=== PATIENT | female | born 1975 | race Hispanic/Latino ===

== ENCOUNTER 2017-04-29 13:05 | Emergency (ER) | payer BC ==
[2017-04-29] MEDS ORDERED: Ondansetron HCl/PF 4 MG/2 ML Vial ONE ×2 (13:39→18:00)
[2017-04-29 13:53] LABS: #Basophils 0.1 thou/uL (0.0-0.2); #Eosinphils 0.1 thou/uL (0.0-0.7); #Lymphocytes 2.1 thou/uL (1.20-3.40); #Monocytes 0.5 thou/uL (0.11-0.59); #Neutrophils 6.9 thou/uL (1.40-6.50); %Basophils 0.7 % (0.0-1.0); %Lymphocytes 21.3 % (21.0-51.0); %Monocytes 5.6 % (0.0-10.0); Hematocrit 44.8 % (36.0-47.0); Mean Platelet Volume 8.5 fL (7.4-10.4); Red Blood Cell (RBC) Count 4.84 mill/uL (4.20-5.40); White Blood Cell (WBC) Count 9.6 thou/uL (4.8-10.8)
[2017-04-29 14:24] LABS: ALT (SGPT) 14 U/L (8-55); AST (SGOT) 9 U/L (5-34); Alkaline Phosphatase 81 U/L (40-150); Anion Gap 11 mmol/L (10-20); BUN (Urea Nitrogen) 16 mg/dL (7.0-18.7); Bilirubin, Total 0.5 mg/dL (0.2-1.2); Calc. Creatinine Clearance 0 mL/min (70-130); Calcium 9.3 mg/dL (7.8-10.44); Carbon Dioxide 24 mmol/L (22-29); Chloride 103 mmol/L (98-107); Estimated GFR-MDRD 90; Globulin 3.3 g/dL (2.4-3.5); Lipase 6 U/L (8-78); Protein, Total 7.3 g/dL (6.0-8.3)
[2017-04-29] MEDS ORDERED: HYDROcodone/Acetaminophen 5/325 mg Tablet ONE (15:05)
[2017-04-29] MEDS ORDERED: Dicyclomine HCl 20 mg/2 ml Ampule ONE (15:15)
[2017-04-29] MEDS ORDERED: Famotidine/PF 20 mg/2ml Vial ONE (15:15)
--- NOTE | 2017-04-29 15:27 | RAD ---
ONE VIEW CHEST ABDOMEN 2 VIEWS: HISTORY: Abdominal pain. Body aches and epigastric pain. FINDINGS: ONE VIEW CHEST: Normal cardiac silhouette. Pulmonary vessels and hilum are normal. No masses or consolidation. No pneumothorax or osseous abnormalities. ABDOMEN 2 VIEWS: Nonspecific bowel gas pattern. There is scattered fecal material in nondistended, nondilated colon. No differential air fluid levels. No suspicious densities in the abdomen. Phleboliths in the rig ht hemipelvis are noted. Gallbladder clips are identified in the right upper quadrant. IMPRESSION: 1. No acute cardiopulmonary process. 2. Nonspecific bowel gas pattern. POS: [facility]
[2017-04-29 16:45] LABS: Bilirubin Negative (Negative); Blood, Urine Moderate (Negative); Glucose, Urine (Dipstick) >=1000 mg/dL (Negative); Ketone, Urine 15 mg/dL (Negative); Nitrite Negative (Negative); Protein, Urine (Dipstick) 30 mg/dL (Neg-Trace); Urobilinogen 0.2 mg/dL (0.2-1.0)
[2017-04-29 17:05] LABS: Bacteria/HPF 4+ HPF (None Seen); Hyaline Casts/LPF NONE SEEN LPF (0-3 Hyaline); RBC/HPF 0-3 HPF (0-3); WBC/HPF 21-50 HPF (0-3)
[2017-04-29] MEDS ORDERED: Sodium Chloride 0.9% 100 ML ONE (17:24)
[2017-04-29] MEDS ORDERED: cefTRIAXone\\ROCEPHIN 2 GM VIAL ONE (17:24)
--- NOTE | 2017-05-01 11:58 | EKG ---
Test Reason : Blood Pressure : / mmHG Vent. Rate : 099 BPM Atrial Rate : 099 BPM P-R Int : 156 ms QRS Dur : 082 ms QT Int : 344 ms P-R-T Axes : 024 -12 007 degrees QTc Int : 441 ms Normal sinus rhythm Possible Anterior infarct , age undetermined Abnormal ECG Confirmed by ADRIAN GERARD MD ([id number]), rewrite editor JACKLYN BLAS ([id number]) on 05/01/2017 11:57:32 AM Referred By: Confirmed By:ADRIAN GERARD MD
== END 2017-04-29 19:15 | disposition home or self-care (01) ==
LOC: ERS 13:05
DX: N39.0 Urinary tract infection, site not specified (principal); E11.9 Type 2 diabetes mellitus without complications
CPT/HCPCS: 36415; 36416; 51701; 74022; 80053; 81003; 81015; 83690; 85025; 87077; 87086; 87186; 93005; 94760; 96361; 96365; 96372; 96375; 96376; J0696; J2270; J2405; J7050; S0028

== ENCOUNTER 2018-01-16 11:02 | Emergency (ER) | payer BC, SELFPAY ==
--- NOTE | 2018-01-16 11:35 | RAD ---
FOUR VIEWS OF THE RIGHT KNEE: Comparison None. HISTORY: Right knee pain after dancing last night. FINDINGS: Four views of the right knee show no evidence of acute fracture or dislocation. No knee effusion is seen. No degenerative changes are seen. IMPRESSION: Unremarkable exam. POS: [facility]
[2018-01-16] MEDS ORDERED: Ketorolac Tromethamine 60 MG/2 ML VIAL ONE (12:11)
== END 2018-01-16 12:27 | disposition home or self-care (01) ==
LOC: ERS 11:02
DX: M25.561 Pain in right knee (principal); E11.9 Type 2 diabetes mellitus without complications
CPT/HCPCS: 96372; J1885

== ENCOUNTER 2018-03-23 04:01 | Emergency (ER) | payer SELFPAY ==
[2018-03-23] MEDS ORDERED: Morphine 4 MG/ML VIAL ONE (04:26)
[2018-03-23] MEDS ORDERED: Ondansetron HCl/PF 4 MG/2 ML Vial ONE (04:26)
[2018-03-23 04:34] LABS: Bilirubin Negative (Negative); Blood, Urine Moderate (Negative); Clarity TURBID (Clear); Glucose, Urine (Dipstick) >=1000 mg/dL (Negative); Leukocyte Small (Negative); Nitrite Positive (Negative); Protein, Urine (Dipstick) 30 mg/dL (Neg-Trace); Specific Gravity, Urine 1.031 (1.002-1.036); Urobilinogen 0.2 mg/dL (0.2-1.0); pH, Urine 6.5 (5.0-9.0)
[2018-03-23 04:37] LABS: Bacteria/HPF 4+ HPF (None Seen); Hyaline Casts/LPF 4-6 HYALINE CAST LPF (0-3 Hyaline); Pathc Cast-AUWi Flag 1.36 (0-2.49); WBC/HPF 21-50 HPF (0-3)
[2018-03-23 04:39] LABS: Yeast-AUWi Flag 694.8 (0-25.0)
[2018-03-23 04:54] LABS: #Eosinphils 0.1 thou/uL (0.0-0.7); #Lymphocytes 0.6 thou/uL (1.20-3.40); #Monocytes 0.2 thou/uL (0.11-0.59); #Neutrophils 6.3 thou/uL (1.40-6.50); %Basophils 0.3 % (0.0-1.0); %Eosinophils 0.9 % (0.0-10.0); %Lymphocytes 8.8 % (21.0-51.0); %Monocytes 3.3 % (0.0-10.0); %Neutrophils 86.8 % (42.0-75.0); Hemoglobin 14.1 g/dL (12.0-16.0); Mean Corpuscular HGB CONC 35.4 g/dL (32.0-36.0); Mean Corpuscular Hemoglobin 31.9 pg (27.0-31.0); Mean Corpuscular Volume 90.1 fL (78.0-98.0); Mean Platelet Volume 8.7 fL (7.4-10.4); Platelet Count 179 thou/uL (130-400); RBC Distribution Width 11.7 % (11.5-14.5); Red Blood Cell (RBC) Count 4.42 mill/uL (4.20-5.40); White Blood Cell (WBC) Count 7.2 thou/uL (4.8-10.8)
[2018-03-23 04:57] LABS: RBC/HPF 0-3 HPF (0-3); Yeast-All Forms Rare HPF (None Seen)
[2018-03-23 05:01] LABS: BHCG - Serum Negative (NEGATIVE); Pregs Control Background? CLEAR/WHITE (CLR/WHITE); Pregs Control Bar Appear? YES (CONTROL BAR)
[2018-03-23] MEDS ORDERED: cefTRIAXone\\ROCEPHIN 2 GM VIAL ONE (05:01)
[2018-03-23] MEDS ORDERED: Lidocaine Viscous Sol 2% 15 ml UD Cup ONE (05:01)
[2018-03-23] MEDS ORDERED: Mag-Al 1200 mg/1200 mg/30 ML UDCUP ONE (05:01)
[2018-03-23 05:17] LABS: ALT (SGPT) 21 U/L (8-55); AST (SGOT) 13 U/L (5-34); Alkaline Phosphatase 72 U/L (40-150); Anion Gap 14 mmol/L (10-20); BUN (Urea Nitrogen) 19 mg/dL (7.0-18.7); Bilirubin, Total 0.7 mg/dL (0.2-1.2); Calc. Creatinine Clearance 0 mL/min (70-130); Carbon Dioxide 20 mmol/L (22-29); Chloride 103 mmol/L (98-107); Estimated GFR-MDRD 87; Globulin 3.3 g/dL (2.4-3.5); Glucose 313 mg/dL (70-105); Lipase 8 U/L (8-78); Potassium 4.2 mmol/L (3.5-5.1); Protein, Total 7.3 g/dL (6.0-8.3); Sodium 133 mmol/L (136-145)
--- NOTE | 2018-03-23 08:03 | CT ---
PRELIMINARY REPORT/[facility]/EMERGENTY AFTER-HOURS PROCEDURE CT Abdomen and Pelvis With Intravenous Contrast CLINICAL HISTORY: 42 years old, female; Pain; Abdominal pain; Epigastric; Prior surgery; Patient HX: Pt C/O upper abdominal pain; Surgical history of cholecystectomy, surgical history of hysterectomy, c -section TECHNIQUE: Axial computed tomography images of the abdomen and pelvis with intravenous contrast. Coronal reformatted images were created and reviewed. COMPARISON: No relevant prior studies available. FINDINGS: Lung bases: No acute findings. Liver: Mild hepatic steatosis. Borderline hepatomegaly. Gallbladder and bile ducts: Cholecystectomy. Pancreas: Mild fatty infiltration of the pancreas. Spleen: Unremarkable. No splenomegaly. Adrenals: Unremarkable. No mass. No hyperplasia. Kidneys and ureters: Left renal collecting system duplication. No hydronephrosis. Stomach and bowel: Unremarkable. No obstruction. No diverticulitis. Appendix: No findings to suggest appendicitis. Bladder: Bladder under distention accentuates mural thickness. Mild wall thickening cannot be exclude d. Intraluminal air likely secondary to recent instrumentation. Reproductive: Hysterectomy. Intraperitoneal space: No free air. No significant fluid. Bones/joints: No acute findings. Soft tissues: No acute findings. Vasculature: No acute findings. Lymph nodes: Unremarkable. IMPRESSION: Possible mild bladder wall thickening. No other acute abnormalities. Thank you for allowing us to participate in the care of your patient. Dictated and Authenticated by: Lb Saleem MD EMERGENT AFTER HOURS CT ABDOMEN AND PELVIS: Date: 03-23-18 History: Upper abdominal pain. History of cholecystectomy and hysterectomy. Comparison: 03-27-17 IMPRESSION: 1. Gas in the urinary bladder which may be related to recent catheterization. Clinical correlation is recommended. The urinary bladder is otherwise decompressed and not well evaluated. 2. Cholecystectomy and hysterectomy. 3. Mild vascular calcification. 4. No CT evidence of appendicitis. 5. No acute findings are seen in the abdomen or pelvis. 6. Findings are in agreement with the preliminary report by KARYN. POS: [facility]
--- NOTE | 2018-03-24 13:51 | EKG ---
Test Reason : EPIGASTRIC PAIN Blood Pressure : / mmHG Vent. Rate : 102 BPM Atrial Rate : 102 BPM P-R Int : 150 ms QRS Dur : 082 ms QT Int : 350 ms P-R-T Axes : 036 -18 015 degrees QTc Int : 456 ms Sinus tachycardia Possible Anterior infarct , age undetermined Abnormal ECG Confirmed by RENÉ MONZON D.O. ([id number]), food editor CAPRI MACKEY ([id number]) on 03/24/2018 1:51:26 PM Referred By: Confirmed By:RENÉ MONZON D.O.
== END 2018-03-23 06:45 | disposition home or self-care (01) ==
LOC: ERS 04:01
DX: N10 Acute pyelonephritis (principal); E11.9 Type 2 diabetes mellitus without complications; I10 Essential (primary) hypertension
CPT/HCPCS: 36415; 74177; 80053; 81003; 81015; 83690; 84703; 85025; 93005; 96365; 96372; 96375; J0696; J2270; J2405

== ENCOUNTER 2018-06-28 17:45 | Emergency (ER) | payer SELFPAY ==
[~2018-06-28 17:45] MED LIST: Iopamidol 370 76% 100 ML VIAL ONE
[2018-06-28 19:11] LABS: #Basophils 0.1 thou/uL (0.0-0.2); #Eosinphils 0.1 thou/uL (0.0-0.7); #Monocytes 0.4 thou/uL (0.11-0.59); #Neutrophils 4.6 thou/uL (1.40-6.50); %Eosinophils 1.3 % (0.0-10.0); %Lymphocytes 28.2 % (21.0-51.0); %Monocytes 5.3 % (0.0-10.0); %Neutrophils 64.2 % (42.0-75.0); Hemoglobin 13.9 g/dL (12.0-16.0); Mean Corpuscular HGB CONC 34.3 g/dL (32.0-36.0); Mean Corpuscular Hemoglobin 31.1 pg (27.0-31.0); Mean Corpuscular Volume 90.7 fL (78.0-98.0); Mean Platelet Volume 9.1 fL (7.4-10.4); Platelet Count 209 thou/uL (130-400); RBC Distribution Width 11.7 % (11.5-14.5); Red Blood Cell (RBC) Count 4.47 mill/uL (4.20-5.40); White Blood Cell (WBC) Count 7.1 thou/uL (4.8-10.8)
--- NOTE | 2018-06-28 20:07 | CT ---
CT ABDOMEN WITH CONTRAST CT PELVIS WITH CONTRAST: 06/28/18 at 6:40 p.m. HISTORY: 43-year-old female with upper abdominal pain. TECHNIQUE: IV contrast: 100 mL Isovue 370. Oral contrast: Not administered. COMPARISON: 03/23/18. FINDINGS: Liver: No major pathology. Spleen: No splenomegaly. Pancreas: No mass or surrounding fat stranding. Kidneys: No hydronephrosis. There is duplication of left renal collecting system. Bladder: No major pathology identified. Abdominal aorta: No aneurysm or rupture. Free fluid: None. Uterus is surgically absent. There are surgical clips in the gallbladder fossa. The previously demonstrated air in the urinary bladder is no longer present. There is no other interval change. IMPRESSION: 1. No evidence of acute pathology within the abdomen or pelvis. 2. Status post hysterectomy and cholecystectomy. 3. Duplication of left renal collecting system. corinne [] POS: [facility]
[2018-06-28 20:48] LABS: Albumin 3.7 g/dL (3.5-5.0)
[2018-06-28 20:49] LABS: Chloride 100 mmol/L (98-107); Potassium 3.9 mmol/L (3.5-5.1); Sodium 132 mmol/L (136-145)
[2018-06-28 20:50] LABS: Calcium 9.1 mg/dL (7.8-10.44); Glucose 304 mg/dL (70-105)
[2018-06-28 20:51] LABS: Protein, Total 6.7 g/dL (6.0-8.3)
[2018-06-28 20:52] LABS: Anion Gap 10 mmol/L (10-20); Bilirubin, Total 0.2 mg/dL (0.2-1.2); Carbon Dioxide 26 mmol/L (22-29)
[2018-06-28 20:53] LABS: Alkaline Phosphatase 88 U/L (40-150)
[2018-06-28 20:54] LABS: Calc. Creatinine Clearance 0 mL/min (70-130); Estimated GFR-MDRD Greater than 90
[2018-06-28 20:55] LABS: BUN (Urea Nitrogen) 9 mg/dL (7.0-18.7)
[2018-06-28 20:56] LABS: ALT (SGPT) 20 U/L (8-55); AST (SGOT) 14 U/L (5-34); Lipase 8 U/L (8-78)
[2018-06-28 21:02] LABS: Bilirubin Negative (Negative); Blood, Urine Trace (Negative); Clarity CLOUDY (Clear); Glucose, Urine (Dipstick) 500 mg/dL (Negative); Leukocyte Small (Negative); Nitrite Negative (Negative); Protein, Urine (Dipstick) 30 mg/dL (Neg-Trace); Urobilinogen 0.2 mg/dL (0.2-1.0)
[2018-06-28 21:03] LABS: Bacteria/HPF 4+ HPF (None Seen); Hyaline Casts/LPF 0-3 HYALINE CAST LPF (0-3 Hyaline); Pathc Cast-AUWi Flag 0.14 (0-2.49); Specific Gravity, Urine 1.055 (1.002-1.036)
[2018-06-28] MEDS ORDERED: Ketorolac Tromethamine 30 MG/ML VIAL ONE (21:43)
[2018-06-28] MEDS ORDERED: Ondansetron PF 4 MG/2 ML Vial ONE (21:43)
--- NOTE | 2018-07-02 12:06 | EKG ---
Test Reason : ABD PAIN Blood Pressure : / mmHG Vent. Rate : 086 BPM Atrial Rate : 086 BPM P-R Int : 152 ms QRS Dur : 084 ms QT Int : 378 ms P-R-T Axes : 034 -12 010 degrees QTc Int : 452 ms Sinus rhythm with Premature atrial complexes with Abberant conduction Otherwise normal ECG Confirmed by JULI MARCOS DO ([id number]), make up editor JACKLYN BLAS ([id number]) on 07/02/2018 12:05:43 PM Referred By: Confirmed By:JULI MARCOS DO
== END 2018-06-28 22:44 | disposition home or self-care (01) ==
LOC: ERS 17:45
DX: N12 Tubulo-interstitial nephritis, not specified as acute or chronic (principal); E11.9 Type 2 diabetes mellitus without complications; I10 Essential (primary) hypertension; Z79.899 Other long term (current) drug therapy; Z79.84 Long term (current) use of oral hypoglycemic drugs
CPT/HCPCS: 36415; 74177; 80053; 81003; 81015; 83690; 84484; 85025; 93005; 96374; 96375; J1885; J2405

== ENCOUNTER 2018-09-13 18:31 | Emergency (ER) | payer BC, SELFPAY ==
[2018-09-13] MEDS ORDERED: Ondansetron ODT 8 MG TAB ONE (18:48)
[2018-09-13] MEDS ORDERED: Famotidine 20 MG TAB ONE (19:04)
[2018-09-13] MEDS ORDERED: Lidocaine Viscous Sol 2% 15 ml UD Cup ONE (19:04)
[2018-09-13] MEDS ORDERED: Mag-Al 1200 mg/1200 mg/30 ML UDCUP ONE (19:04)
[2018-09-13 19:14] LABS: #Basophils 0.1 thou/uL (0.0-0.2); #Eosinphils 0.1 thou/uL (0.0-0.7); #Lymphocytes 1.7 thou/uL (1.20-3.40); #Monocytes 0.3 thou/uL (0.11-0.59); #Neutrophils 4.5 thou/uL (1.40-6.50); %Eosinophils 0.8 % (0.0-10.0); %Monocytes 4.3 % (0.0-10.0); %Neutrophils 67.9 % (42.0-75.0); Hemoglobin 13.9 g/dL (12.0-16.0); Mean Corpuscular HGB CONC 33.6 g/dL (32.0-36.0); Mean Corpuscular Hemoglobin 30.8 pg (27.0-31.0); Mean Corpuscular Volume 91.7 fL (78.0-98.0); Mean Platelet Volume 8.9 fL (7.4-10.4); Platelet Count 207 thou/uL (130-400); RBC Distribution Width 12.1 % (11.5-14.5); Red Blood Cell (RBC) Count 4.51 mill/uL (4.20-5.40); White Blood Cell (WBC) Count 6.6 thou/uL (4.8-10.8)
[2018-09-13 19:18] LABS: BHCG - Serum Negative (NEGATIVE); Pregs Control Background? CLEAR/WHITE (CLR/WHITE); Pregs Control Bar Appear? YES (CONTROL BAR)
[2018-09-13 19:34] LABS: ALT (SGPT) 19 U/L (8-55); AST (SGOT) 12 U/L (5-34); Alkaline Phosphatase 114 U/L (40-150); Anion Gap 15 mmol/L (10-20); BUN (Urea Nitrogen) 12 mg/dL (7.0-18.7); Bilirubin, Total 0.3 mg/dL (0.2-1.2); Calc. Creatinine Clearance 0 mL/min (70-130); Calcium 10.2 mg/dL (7.8-10.44); Carbon Dioxide 23 mmol/L (22-29); Chloride 99 mmol/L (98-107); Estimated GFR-MDRD 78; Globulin 3.2 g/dL (2.4-3.5); Glucose 454 mg/dL (70-105); Lipase 64 U/L (8-78); Potassium 4.3 mmol/L (3.5-5.1); Protein, Total 7.2 g/dL (6.0-8.3); Sodium 133 mmol/L (136-145)
[2018-09-13] MEDS ORDERED: Insulin Regular 300 UNITS/3 ML VIAL ONE (20:04)
== END 2018-09-13 20:56 | disposition home or self-care (01) ==
LOC: ERS 18:31
DX: R10.13 Epigastric pain (principal); E11.9 Type 2 diabetes mellitus without complications; I10 Essential (primary) hypertension
CPT/HCPCS: 36415; 36416; 80053; 83690; 84703; 85025; 99284; J1815

== ENCOUNTER 2018-10-03 00:07 | Emergency (ER) | payer SELFPAY ==
[2018-10-03 00:39] LABS: #Basophils 0.1 thou/uL (0.0-0.2); #Eosinphils 0.1 thou/uL (0.0-0.7); #Lymphocytes 3.2 thou/uL (1.20-3.40); #Monocytes 0.4 thou/uL (0.11-0.59); #Neutrophils 3.8 thou/uL (1.40-6.50); %Basophils 0.8 % (0.0-1.0); %Eosinophils 1.3 % (0.0-10.0); %Lymphocytes 42.8 % (21.0-51.0); %Monocytes 5.2 % (0.0-10.0); %Neutrophils 49.9 % (42.0-75.0); Hemoglobin 14.1 g/dL (12.0-16.0); Mean Corpuscular HGB CONC 32.8 g/dL (32.0-36.0); Mean Corpuscular Hemoglobin 30.2 pg (27.0-31.0); Mean Platelet Volume 9.1 fL (7.4-10.4); Platelet Count 223 thou/uL (130-400); RBC Distribution Width 11.7 % (11.5-14.5); Red Blood Cell (RBC) Count 4.67 mill/uL (4.20-5.40); White Blood Cell (WBC) Count 7.5 thou/uL (4.8-10.8)
[2018-10-03 00:55] LABS: ALT (SGPT) 39 U/L (8-55); AST (SGOT) 64 U/L (5-34); Albumin 3.9 g/dL (3.5-5.0); Alkaline Phosphatase 98 U/L (40-150); Anion Gap 11 mmol/L (10-20); BUN (Urea Nitrogen) 13 mg/dL (7.0-18.7); Bilirubin, Total 0.3 mg/dL (0.2-1.2); Calc. Creatinine Clearance 0 mL/min (70-130); Calcium 9.4 mg/dL (7.8-10.44); Carbon Dioxide 26 mmol/L (22-29); Chloride 102 mmol/L (98-107); Estimated GFR-MDRD 87; Glucose 309 mg/dL (70-105); Protein, Total 6.9 g/dL (6.0-8.3); Sodium 135 mmol/L (136-145)
== END 2018-10-03 01:38 | disposition left against medical advice (07) ==
LOC: ERS 00:07
DX: Z53.21 Procedure and treatment not carried out due to patient leaving prior to being seen by health care provider (principal)
CPT/HCPCS: 36415; 80053; 85025; 93005

== ENCOUNTER 2019-06-22 16:49 | Emergency (ER) | payer BC, SELFPAY ==
--- NOTE | 2019-06-22 17:26 | CT ---
CT BRAIN NONCONTRAST: DATE: 06/22/2019 HISTORY: 44-year-old female with acute stroke symptoms: Blurry vision, left lower extremity hypesthesia, and l eft-sided weakness. Dr. Escobedo verbally gave this stroke alert protocol report to Dr. Salas of the emergency Department at 5:22 PM on 06/22/2019 FINDINGS: There is no evidence of acute intra-axial or extra-axial hemorrhage. There is no midline shift or any other mass effect. There is no extra-axial fluid collection. The ventricles are normal in size and configuration. The tympanomastoid cavities, and the upper portions of the paranasal sinuses included in these images, are grossly clear. Calvarium is intact. IMPRESSION: Normal.
[2019-06-22 17:38] LABS: #Basophils 0.1 thou/uL (0.0-0.2); #Eosinphils 0.1 thou/uL (0.0-0.7); #Lymphocytes 1.8 thou/uL (1.20-3.40); #Monocytes 0.3 thou/uL (0.11-0.59); #Neutrophils 4.8 thou/uL (1.40-6.50); %Basophils 0.9 % (0.0-1.0); %Eosinophils 1.2 % (0.0-10.0); %Lymphocytes 25.9 % (21.0-51.0); %Monocytes 4.5 % (0.0-10.0); %Neutrophils 67.6 % (42.0-75.0); Hemoglobin 13.2 g/dL (12.0-16.0); Mean Corpuscular HGB CONC 34.5 g/dL (32.0-36.0); Mean Corpuscular Hemoglobin 30.6 pg (27.0-31.0); Mean Corpuscular Volume 88.7 fL (78.0-98.0); Mean Platelet Volume 8.9 fL (7.4-10.4); Platelet Count 220 thou/uL (130-400); Red Blood Cell (RBC) Count 4.33 mill/uL (4.20-5.40); White Blood Cell (WBC) Count 7.1 thou/uL (4.8-10.8)
[2019-06-22] MEDS ORDERED: Acetaminophen 500 MG TAB ONE (17:41)
[2019-06-22] MEDS ORDERED: Metoclopramide HCl 10 MG/2 ML VIAL ONE (17:41)
[2019-06-22] MEDS ORDERED: diphenhydrAMINE 50 MG/ML VIAL ONE (17:41)
[2019-06-22 17:46] LABS: INR-International Normal Ratio 0.8; Prothrombin Time 11.5 SEC (12.0-14.7)
[2019-06-22 17:47] LABS: PTT 27.9 SEC (22.9-36.1)
--- NOTE | 2019-06-22 17:50 | RAD ---
RADIOGRAPH CHEST 1 VIEW: DATE: 06/22/2019 HISTORY: 44-year-old female with acute stroke symptoms. Concern for aspiration. FINDINGS: The visualized lung kaplan are clear. The cardiomediastinal silhouette and hilar shadows are normal. The lateral costophrenic angles are sharp. The osseous structures appear normal. There is no pneumothorax. IMPRESSION: Negative.
[2019-06-22 17:58] LABS: ALT (SGPT) 21 U/L (8-55); AST (SGOT) 13 U/L (5-34); Albumin 3.7 g/dL (3.5-5.0); Alkaline Phosphatase 129 U/L (40-110); Anion Gap 13 mmol/L (10-20); BUN (Urea Nitrogen) 11 mg/dL (7.0-18.7); Bilirubin, Total 0.2 mg/dL (0.2-1.2); CK (CPK) 124 U/L (29-168); Calc. Creatinine Clearance 0 mL/min (70-130); Calcium 9.2 mg/dL (7.8-10.44); Carbon Dioxide 24 mmol/L (22-29); Chloride 100 mmol/L (98-107); Estimated GFR-MDRD 69; Globulin 3.3 g/dL (2.4-3.5); Glucose 494 mg/dL (70-105); Potassium 4.4 mmol/L (3.5-5.1); Sodium 133 mmol/L (136-145)
[2019-06-22 19:06] LABS: Bilirubin Negative (Negative); Blood, Urine Trace (Negative); Clarity Clear (Clear); Glucose, Urine (Dipstick) Greater than 1000 mg/dL (Negative); Leukocyte Negative Leu/uL (Negative); Nitrite Negative (Negative); Protein, Urine (Dipstick) 50 mg/dL (Neg-Trace); Squamous Epithelial 0-3 HPF (0-3); Urobilinogen Normal mg/dL (Less than 2)
[2019-06-22 19:22] LABS: Bacteria/HPF 4+ HPF (None Seen)
== END 2019-06-22 20:05 | disposition home or self-care (01) ==
LOC: ERS 16:49
DX: R20.2 Paresthesia of skin (principal); R51 Headache; E11.9 Type 2 diabetes mellitus without complications; I10 Essential (primary) hypertension; Z79.84 Long term (current) use of oral hypoglycemic drugs; Z79.899 Other long term (current) drug therapy
CPT/HCPCS: 36415; 36416; 70450; 71045; 80053; 81003; 81015; 82550; 84484; 85025; 85610; 85730; 93005; 94760; 96365; 96375; J1200; J2765

== ENCOUNTER 2019-12-13 23:45 | Emergency (ER) | payer BC ==
[2019-12-14 00:25] LABS: #Basophils 0.1 thou/uL (0.0-0.2); #Eosinphils 0.1 thou/uL (0.0-0.7); #Lymphocytes 3.1 thou/uL (1.20-3.40); #Monocytes 0.5 thou/uL (0.11-0.59); #Neutrophils 5.6 thou/uL (1.40-6.50); %Basophils 0.7 % (0.0-1.0); %Eosinophils 1.3 % (0.0-10.0); %Lymphocytes 33.1 % (21.0-51.0); %Monocytes 5.6 % (0.0-10.0); %Neutrophils 59.2 % (42.0-75.0); Hemoglobin 12.8 g/dL (12.0-16.0); Mean Corpuscular HGB CONC 35.1 g/dL (32.0-36.0); Mean Corpuscular Hemoglobin 32.1 pg (27.0-31.0); Mean Corpuscular Volume 91.5 fL (78.0-98.0); Mean Platelet Volume 9.3 fL (7.4-10.4); Platelet Count 219 thou/uL (130-400); Red Blood Cell (RBC) Count 3.99 mill/uL (4.20-5.40); White Blood Cell (WBC) Count 9.4 thou/uL (4.8-10.8)
[2019-12-14] MEDS ORDERED: Meclizine HCl 25 MG TAB ONE ×2 (00:33→01:41)
[2019-12-14 00:41] LABS: ALT (SGPT) 14 U/L (8-55); AST (SGOT) 12 U/L (5-34); Albumin 3.4 g/dL (3.5-5.0); Alkaline Phosphatase 90 U/L (40-110); Anion Gap 14 mmol/L (10-20); BUN (Urea Nitrogen) 17 mg/dL (7.0-18.7); Bilirubin, Total 0.2 mg/dL (0.2-1.2); Calc. Creatinine Clearance 0 mL/min (70-130); Calcium 8.7 mg/dL (7.8-10.44); Carbon Dioxide 21 mmol/L (22-29); Chloride 104 mmol/L (98-107); Estimated GFR-MDRD 66; Globulin 3.2 g/dL (2.4-3.5); Glucose 286 mg/dL (70-105); Potassium 3.5 mmol/L (3.5-5.1); Protein, Total 6.6 g/dL (6.0-8.3); Sodium 135 mmol/L (136-145)
[2019-12-14 01:17] LABS: Bacteria/HPF 4+ HPF (None Seen); Bilirubin Negative (Negative); Blood, Urine Trace (Negative); Clarity Turbid (Clear); Glucose, Urine (Dipstick) Greater than 1000 mg/dL (Negative); Leukocyte 250 Leu/uL (Negative); Nitrite Negative (Negative); Protein, Urine (Dipstick) 200 mg/dL (Neg-Trace); Urobilinogen Normal mg/dL (Less than 2); WBC/HPF 21-50 HPF (0-3)
--- NOTE | 2019-12-14 07:30 | CT ---
PRELIMINARY REPORT/[facility]/EMERGENCY AFTER HOURS PROCEDURE: EXAM: CT Head Without Intravenous Contrast. CLINICAL HISTORY: PT REPORTS DIZZINESS, WEAKNESS, AND HEADACHE ONSET AROUND 1300 TODAY. TECHNIQUE: Axial computed tomography images of the head/brain without intravenous contrast. 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 No mass lesion. No CT evidence for acute territorial inf arct. No midline shift or extra-axial collection. VENTRICLES: No hydrocephalus. ORBITS: The orbits are unremarkable. SINUSES AND MASTOIDS: The paranasal sinuses and mastoid air cells are clear. SOFT TISSUES: No significant facial or scalp soft tissue swelling evident. No radiopaque foreign body is seen. BONES: No acute skull fracture. IMPRESSION: No acute intracranial abnormality. ELECTRONICALLY SIGNED BY: Tristian Donis MD December 14, 2019 1:01:15 AM CDT This report is intended for review by the ordering physician only, in accordance of law. If you recei ve this report in error, please call [facility] at [phone]. FINAL REPORT EMERGENCY AFTER HOURS CT BRAIN WITHOUT CONTRAST: Date: 12/14/2019 FINDINGS/IMPRESSION: I agree with the findings and impression given in the preliminary report per [facility] physici an. No evidence of acute intracranial abnormality. POS: [facility]
--- NOTE | 2019-12-15 15:33 | EKG ---
Test Reason : Blood Pressure : / mmHG Vent. Rate : 094 BPM Atrial Rate : 094 BPM P-R Int : 152 ms QRS Dur : 088 ms QT Int : 376 ms P-R-T Axes : 031 -09 018 degrees QTc Int : 470 ms Normal sinus rhythm Possible Anterior infarct , age undetermined No STEMI Abnormal ECG Confirmed by GLORIA LAZO M.D. ([id number]), writer editor CAPRI MACKEY ([id number]) on 12/15/2019 3:32:59 PM Referred By: Confirmed By:GLORIA LAZO M.D.
== END 2019-12-14 02:55 | disposition home or self-care (01) ==
LOC: ERS 23:45
DX: R42 Dizziness and giddiness (principal); E11.40 Type 2 diabetes mellitus with diabetic neuropathy, unspecified; I10 Essential (primary) hypertension; Z79.84 Long term (current) use of oral hypoglycemic drugs; Z79.899 Other long term (current) drug therapy
CPT/HCPCS: 36415; 70450; 80053; 81003; 81015; 85025; 93005

== ENCOUNTER 2022-06-12 13:35 | Emergency (ER) | payer SELFPAY ==
[2022-06-12 14:22] LABS: #Basophils 0.1 thou/uL (0.0-0.2); #Eosinphils 0.1 thou/uL (0.0-0.7); #Lymphocytes 1.7 thou/uL (1.20-3.40); #Monocytes 0.4 thou/uL (0.11-0.59); %Basophils 0.8 % (0.0-1.0); %Eosinophils 1.6 % (0.0-10.0); %Lymphocytes 23.6 % (21.0-51.0); %Monocytes 5.5 % (0.0-10.0); %Neutrophils 68.5 % (42.0-75.0); Mean Corpuscular HGB CONC 32.6 g/dL (32.0-36.0); Mean Corpuscular Hemoglobin 30.7 pg (27.0-31.0); Platelet Count 328 10x3/uL (130-400); RBC Distribution Width 13.1 % (11.5-14.5); Red Blood Cell (RBC) Count 3.26 mill/uL (4.20-5.40); White Blood Cell (WBC) Count 7.2 10x3/uL (4.8-10.8)
[2022-06-12] MEDS ORDERED: Haloperidol Lactate 5 MG/ML VIAL ONE (14:23)
[2022-06-12] MEDS ORDERED: diphenhydrAMINE 50 MG/ML VIAL ONE (14:23)
[2022-06-12] MEDS ORDERED: Labetalol HCl 100 MG/20 ML VIAL ONE (14:23)
[2022-06-12 14:48] LABS: ALT (SGPT) 14 U/L (8-55); AST (SGOT) 16 U/L (5-34); Albumin 2.8 g/dL (3.5-5.0); Alkaline Phosphatase 88 U/L (40-110); Anion Gap 13 mmol/L (10-20); BUN (Urea Nitrogen) 28 mg/dL (7.0-18.7); Bilirubin, Total 0.2 mg/dL (0.2-1.2); Calc. Creatinine Clearance 0 mL/min (70-130); Carbon Dioxide 20 mmol/L (22-29); Chloride 111 mmol/L (98-107); Estimated GFR 24; Globulin 2.7 g/dL (2.4-3.5); Glucose 121 mg/dL (70-105); Lipase 11 U/L (8-78); Magnesium 1.9 mg/dL (1.6-2.6); Potassium 4.9 mmol/L (3.5-5.1); Protein, Total 5.5 g/dL (6.0-8.3); Sodium 139 mmol/L (136-145)
== END 2022-06-12 17:02 | disposition home or self-care (01) ==
LOC: ERS 13:35
DX: I10 Essential (primary) hypertension (principal); E11.9 Type 2 diabetes mellitus without complications
CPT/HCPCS: 36415; 70450; 71045; 80053; 83690; 83735; 83880; 84484; 85025; 93005; 96374; 96375; J1200; J1630

== ENCOUNTER 2022-06-24 01:40 | Emergency (ER) | payer SELFPAY ==
[2022-06-24 03:19] LABS: Bacteria/HPF None Seen HPF (None Seen); Bilirubin Negative (Negative); Blood, Urine 1+ (Negative); Clarity Clear (Clear); Glucose, Urine (Dipstick) 300 mg/dL (Negative); Ketone, Urine Trace mg/dL (Negative); Leukocyte Negative Leu/uL (Negative); Nitrite Negative (Negative); Protein, Urine (Dipstick) 300 mg/dL (Neg-Trace); RBC/HPF 0-3 HPF (0-3); Specific Gravity, Urine 1.013 (1.002-1.036); Urobilinogen Normal mg/dL (Less than 2); WBC/HPF 0-3 HPF (0-3)
[2022-06-24 03:21] LABS: #Basophils 0.1 thou/uL (0.0-0.2); #Eosinphils 0.2 thou/uL (0.0-0.7); #Lymphocytes 1.9 thou/uL (1.20-3.40); #Monocytes 0.5 thou/uL (0.11-0.59); #Neutrophils 6.7 thou/uL (1.40-6.50); %Basophils 0.8 % (0.0-1.0); %Eosinophils 1.8 % (0.0-10.0); %Lymphocytes 20.1 % (21.0-51.0); %Monocytes 5.1 % (0.0-10.0); %Neutrophils 72.2 % (42.0-75.0); Mean Corpuscular HGB CONC 33.5 g/dL (32.0-36.0); Mean Corpuscular Hemoglobin 31.4 pg (27.0-31.0); Mean Corpuscular Volume 93.6 fl (78.0-98.0); Mean Platelet Volume 8.9 fL (7.4-10.4); Platelet Count 321 10x3/uL (130-400); RBC Distribution Width 13.7 % (11.5-14.5); Red Blood Cell (RBC) Count 3.49 mill/uL (4.20-5.40); White Blood Cell (WBC) Count 9.2 10x3/uL (4.8-10.8)
[2022-06-24 03:38] LABS: ALT (SGPT) 20 U/L (8-55); AST (SGOT) 19 U/L (5-34); Alkaline Phosphatase 90 U/L (40-110); Anion Gap 13 mmol/L (10-20); BUN (Urea Nitrogen) 35 mg/dL (7.0-18.7); Bilirubin, Total 0.2 mg/dL (0.2-1.2); Calc. Creatinine Clearance 0 mL/min (70-130); Calcium 8.7 mg/dL (7.8-10.44); Carbon Dioxide 20 mmol/L (22-29); Chloride 112 mmol/L (98-107); Estimated GFR 23; Globulin 3.4 g/dL (2.4-3.5); Glucose 141 mg/dL (70-105); Potassium 4.5 mmol/L (3.5-5.1); Protein, Total 6.4 g/dL (6.0-8.3); Sodium 140 mmol/L (136-145)
[2022-06-24] MEDS ORDERED: Morphine 4 MG/ML VIAL ONE ×2 (04:19→05:22)
[2022-06-24 04:58] LABS: Pregnancy Test - Urine (BHCG) Negative (Negative); Pregu Control Background? CLEAR/WHITE (CLR/WHITE); Pregu Control Bar Appear? YES (CONTROL BAR); Specific Gravity 1.013 (1.002-1.036)
[2022-06-24] MEDS ORDERED: Ondansetron ODT 4 MG TAB ONE (05:16)
== END 2022-06-24 06:34 | disposition home or self-care (01) ==
LOC: ERS 01:40
DX: M54.6 Pain in thoracic spine (principal); M54.50 Low back pain, unspecified; I12.9 Hypertensive chronic kidney disease with stage 1 through stage 4 chronic kidney disease, or unspecified chronic kidney disease; E11.22 Type 2 diabetes mellitus with diabetic chronic kidney disease; E11.40 Type 2 diabetes mellitus with diabetic neuropathy, unspecified; E78.5 Hyperlipidemia, unspecified; N18.4 Chronic kidney disease, stage 4 (severe); D63.1 Anemia in chronic kidney disease; Z79.899 Other long term (current) drug therapy
CPT/HCPCS: 36415; 74176; 80053; 81003; 81015; 81025; 83690; 84484; 85025; 87086; 93005; 96372; 96374; J2270; Q0162

== ENCOUNTER 2022-08-10 23:36 | Inpatient (IN) | payer BC, OTHER, SELFPAY ==
[2022-08-11 00:44] LABS: #Eosinphils 0.1 thou/uL (0.0-0.7); #Lymphocytes 0.3 thou/uL (1.20-3.40); #Monocytes 0.2 thou/uL (0.11-0.59); #Neutrophils 7.4 thou/uL (1.40-6.50); %Basophils 0.2 % (0.0-1.0); %Eosinophils 0.6 % (0.0-10.0); %Lymphocytes 3.7 % (21.0-51.0); %Monocytes 2.4 % (0.0-10.0); %Neutrophils 93.1 % (42.0-75.0); Hemoglobin 8.9 g/dL (12.0-16.0); Mean Corpuscular HGB CONC 32.7 g/dL (32.0-36.0); Mean Corpuscular Hemoglobin 30.9 pg (27.0-31.0); Mean Corpuscular Volume 94.5 fl (78.0-98.0); Mean Platelet Volume 10.5 fL (7.4-10.4); Platelet Count 193 10x3/uL (130-400); Red Blood Cell (RBC) Count 2.88 mill/uL (4.20-5.40); White Blood Cell (WBC) Count 7.9 10x3/uL (4.8-10.8)
[2022-08-11 00:49] LABS: Bacteria/HPF 1+ HPF (None Seen); Bilirubin Negative (Negative); Blood, Urine 1+ (Negative); Clarity Clear (Clear); Glucose, Urine (Dipstick) 150 mg/dL (Negative); Ketone, Urine Negative (Negative); Leukocyte Negative Leu/uL (Negative); Nitrite Negative (Negative); Protein, Urine (Dipstick) 600 mg/dL (Neg-Trace); RBC/HPF 0-3 HPF (0-3); Squamous Epithelial 0-3 HPF (0-3); Urobilinogen Normal mg/dL (Less than 2)
[2022-08-11 01:04] LABS: ALT (SGPT) 32 U/L (8-55); AST (SGOT) 36 U/L (5-34); Albumin 2.9 g/dL (3.5-5.0); Alkaline Phosphatase 87 U/L (40-110); Anion Gap 12 mmol/L (10-20); BUN (Urea Nitrogen) 55 mg/dL (7.0-18.7); Bilirubin, Total 0.3 mg/dL (0.2-1.2); Calc. Creatinine Clearance 0 mL/min (70-130); Calcium 8.3 mg/dL (7.8-10.44); Carbon Dioxide 19 mmol/L (22-29); Chloride 115 mmol/L (98-107); Estimated GFR 15; Glucose 77 mg/dL (70-105); Potassium 4.6 mmol/L (3.5-5.1); Protein, Total 5.9 g/dL (6.0-8.3); Sodium 141 mmol/L (136-145)
[2022-08-11 01:15] LABS: SARS-CoV-2 NAA Rapid Test Not Detected (NotDetected)
[2022-08-11] MEDS ORDERED: Acetaminophen 500 MG TAB ONE (02:49)
[2022-08-11] MEDS ORDERED: Morphine 4 MG/ML VIAL ONE (04:40)
[2022-08-11] MEDS ORDERED: Fentanyl 100 MCG/2 ML VIAL SLOW IVP PRN (05:09)
[2022-08-11] MEDS ORDERED: VANCOMYCIN 1.25 GM/250 ML BAG 1.25 GM in Premix Bag 1 BAG IVPB SCH (05:15)
[2022-08-11] MEDS ORDERED: Cefepime 2 GM in Sodium Chloride 0.9% 100 ML IVPB SCH (05:15)
[2022-08-11] MEDS ORDERED: Ondansetron PF 4 MG/2 ML Vial IVP PRN (05:19)
[2022-08-11] MEDS ORDERED: Ondansetron ODT 4 MG TAB PO PRN (05:19)
[2022-08-11] MEDS ORDERED: metroNIDAZOLE 500 MG/100 ML BAG ONE (05:46)
[2022-08-11] MEDS ORDERED: Cefepime 2 GM VIAL ONE (05:46)
[2022-08-11] MEDS ORDERED: Furosemide 40 MG/4 ML VIAL SLOW IVP SCH (06:00)
[2022-08-11] MEDS ORDERED: HumaLOG 300 UNITS/3 ML VIAL SC PRN ×2 (06:15)
[2022-08-11] MEDS ORDERED: Dextrose 5% in Water 1,000 ML IV PRN (06:15)
[2022-08-11] MEDS ORDERED: Dextrose 50% Abboject 50 ML SYRINGE SLOW IVP PRN (06:15)
[2022-08-11] MEDS: metroNIDAZOLE 500 MG in Premix Bag 1 BAG IVPB SCH ×3 (06:23→21:24)
[2022-08-11] MEDS ORDERED: Furosemide 40 MG/4 ML VIAL ONE (06:25)
[2022-08-11] MEDS ORDERED: VANCOMYCIN 2 GRAM/500 ML BAG 2 GM in Premix Bag 1 BAG IVPB SCH (06:30)
[2022-08-11] MEDS ORDERED: Vancomycin Dose by Levels Sliding Scale (Wt > 99) FS SCH (06:30)
[2022-08-11] MEDS: Heparin 5,000 UNITS/ML VIAL SC SCH ×3 (08:52→21:24)
[2022-08-11] MEDS ORDERED: Fentanyl 100 MCG/2 ML VIAL ONE (09:26)
[2022-08-11] MEDS ORDERED: Ondansetron PF 4 MG/2 ML Vial ONE (09:26)
[2022-08-11 14:14] VITALS: BMI 50.5
[2022-08-11] MEDS: Furosemide 40 MG/4 ML VIAL SLOW IVP SCH (14:40)
[2022-08-11] MEDS: Acetaminophen 325 MG TAB PO PRN (18:14)
[2022-08-12 04:55] LABS: #Eosinphils 0.2 thou/uL (0.0-0.7); #Monocytes 0.4 thou/uL (0.11-0.59); #Neutrophils 3.9 thou/uL (1.40-6.50); %Basophils 0.6 % (0.0-1.0); %Eosinophils 3.6 % (0.0-10.0); %Monocytes 7.5 % (0.0-10.0); %Neutrophils 70.4 % (42.0-75.0); Hemoglobin 7.9 g/dL (12.0-16.0); Mean Corpuscular HGB CONC 32.2 g/dL (32.0-36.0); Mean Corpuscular Volume 96.2 fl (78.0-98.0); Mean Platelet Volume 10.6 fL (7.4-10.4); Platelet Count 200 10x3/uL (130-400); Red Blood Cell (RBC) Count 2.54 mill/uL (4.20-5.40); White Blood Cell (WBC) Count 5.5 10x3/uL (4.8-10.8)
[2022-08-12 05:07] LABS: Phosphorus 4.6 mg/dL (2.3-4.7)
[2022-08-12 05:09] LABS: Anion Gap 13 mmol/L (10-20); BUN (Urea Nitrogen) 52 mg/dL (7.0-18.7); Calc. Creatinine Clearance 39 mL/min (70-130); Carbon Dioxide 18 mmol/L (22-29); Chloride 112 mmol/L (98-107); Estimated GFR 13; Glucose 97 mg/dL (70-105); Iron 21 ug/dL (50-170); Iron Binding Capacity, Total 226 mcg/dL (265-497); Magnesium 2.1 mg/dL (1.6-2.6); Potassium 4.2 mmol/L (3.5-5.1); Sodium 139 mmol/L (136-145)
[2022-08-12] MEDS: Cefepime 1 GM in Sodium Chloride 0.9% 100 ML IVPB SCH (05:11)
[2022-08-12] MEDS: Furosemide 40 MG/4 ML VIAL SLOW IVP SCH ×2 (05:12→15:29)
[2022-08-12] MEDS: Acetaminophen 325 MG TAB PO PRN ×3 (05:12→20:09)
[2022-08-12 05:26] LABS: Ferritin 171.13 ng/mL (10-291)
[2022-08-12] MEDS: metroNIDAZOLE 500 MG in Premix Bag 1 BAG IVPB SCH ×2 (06:01→15:30)
[2022-08-12 08:08] LABS: Vancomycin, Random 18.2 ug/mL (See Comment)
[2022-08-12] MEDS ORDERED: FLU VACC QS2022-23(6MOS UP)/PF 60 MCG/0.5 ML SYRINGE IM ONE (09:00)
[2022-08-12] MEDS ORDERED: Vancomycin HCl 750 MG in Sodium Chloride 0.9% 250 ML 250 ML IVPB SCH (09:00)
[2022-08-12] MEDS: Heparin 5,000 UNITS/ML VIAL SC SCH ×3 (09:21→20:09)
[2022-08-12] MEDS ORDERED: Labetalol HCl 100 MG/20 ML VIAL SLOW IVP SCH (20:45)
[2022-08-12] MEDS ORDERED: cloNIDine 0.1 MG TAB PO SCH (23:15)
[2022-08-13 05:45] LABS: Anion Gap 10 mmol/L (10-20); BUN (Urea Nitrogen) 54 mg/dL (7.0-18.7); Calc. Creatinine Clearance 40 mL/min (70-130); Calcium 7.8 mg/dL (7.8-10.44); Carbon Dioxide 20 mmol/L (22-29); Chloride 114 mmol/L (98-107); Estimated GFR 14; Glucose 100 mg/dL (70-105); Potassium 4.1 mmol/L (3.5-5.1); Sodium 140 mmol/L (136-145)
[2022-08-13] MEDS: Furosemide 40 MG/4 ML VIAL SLOW IVP SCH ×2 (06:00→13:17)
[2022-08-13] MEDS: Cefepime 1 GM in Sodium Chloride 0.9% 100 ML IVPB SCH (06:04)
[2022-08-13] MEDS ORDERED: Polyethylene Glycol 3350 17 GM Packet PO PRN (06:57)
[2022-08-13] MEDS: Heparin 5,000 UNITS/ML VIAL SC SCH ×3 (08:38→20:14)
[2022-08-13] MEDS: Ferrous Gluconate 324 MG TAB PO SCH (08:38)
[2022-08-13] MEDS ORDERED: Ergocalciferol 1.25 MG(50,000 UNITS) CAP PO SCH (09:00)
[2022-08-13] MEDS ORDERED: Epoetin (ESRD) 20,000 UNITS/ML SC SCH (09:45)
[2022-08-13] MEDS ORDERED: EPOETIN ALFA-EPBX (ESRD) 10,000 UNIT/ML VIAL SC SCH (12:00)
[2022-08-13] MEDS ORDERED: Carvedilol 25 MG TAB PO SCH (15:00)
[2022-08-13] MEDS: hydrALAZINE 25 MG TAB PO SCH ×2 (15:56→20:14)
[2022-08-13] MEDS: Gabapentin 300 MG CAP PO SCH (20:14)
[2022-08-13] MEDS: Sodium Bicarbonate Tab 325 MG TAB PO SCH (20:14)
[2022-08-13] MEDS: Atorvastatin Calcium 40 MG TAB PO SCH (20:14)
[2022-08-13] MEDS: Carvedilol 6.25 MG TAB PO SCH (20:14)
[2022-08-14] MEDS ORDERED: cloNIDine 0.1 MG TAB PO SCH (00:15)
[2022-08-14] MEDS: Acetaminophen 325 MG TAB PO PRN ×2 (00:17→20:06)
[2022-08-14 05:16] LABS: Anion Gap 12 mmol/L (10-20); BUN (Urea Nitrogen) 49 mg/dL (7.0-18.7); Calc. Creatinine Clearance 43 mL/min (70-130); Calcium 8.4 mg/dL (7.8-10.44); Carbon Dioxide 17 mmol/L (22-29); Chloride 114 mmol/L (98-107); Estimated GFR 15; Glucose 128 mg/dL (70-105); Potassium 3.9 mmol/L (3.5-5.1); Sodium 139 mmol/L (136-145)
[2022-08-14] MEDS: Furosemide 40 MG/4 ML VIAL SLOW IVP SCH ×2 (05:43→14:11)
[2022-08-14] MEDS: Carvedilol 6.25 MG TAB PO SCH ×2 (08:39→20:03)
[2022-08-14] MEDS: hydrALAZINE 25 MG TAB PO SCH ×3 (08:40→20:04)
[2022-08-14] MEDS: Heparin 5,000 UNITS/ML VIAL SC SCH ×3 (08:40→20:03)
[2022-08-14] MEDS: Sodium Bicarbonate Tab 325 MG TAB PO SCH ×2 (08:40→20:03)
[2022-08-14] MEDS: Ferrous Gluconate 324 MG TAB PO SCH (08:40)
[2022-08-14] MEDS: Gabapentin 300 MG CAP PO SCH ×2 (08:40→20:03)
[2022-08-14] MEDS ORDERED: Potassium Chloride 20 MEQ TAB PO SCH (09:30)
[2022-08-14] MEDS: Atorvastatin Calcium 40 MG TAB PO SCH (20:03)
[2022-08-14] MEDS: Senokot S 8.6-50 MG TAB PO SCH (20:04)
[2022-08-15 05:28] LABS: Anion Gap 12 mmol/L (10-20); BUN (Urea Nitrogen) 49 mg/dL (7.0-18.7); Calc. Creatinine Clearance 44 mL/min (70-130); Calcium 7.8 mg/dL (7.8-10.44); Carbon Dioxide 20 mmol/L (22-29); Chloride 112 mmol/L (98-107); Estimated GFR 15; Glucose 181 mg/dL (70-105); Magnesium 1.8 mg/dL (1.6-2.6); Potassium 4.3 mmol/L (3.5-5.1); Sodium 140 mmol/L (136-145)
[2022-08-15] MEDS: Furosemide 40 MG/4 ML VIAL SLOW IVP SCH (06:05)
[2022-08-15] MEDS: Acetaminophen 325 MG TAB PO PRN (06:10)
[2022-08-15] MEDS: Ferrous Gluconate 324 MG TAB PO SCH (08:06)
[2022-08-15] MEDS: Carvedilol 6.25 MG TAB PO SCH (08:06)
[2022-08-15] MEDS: Senokot S 8.6-50 MG TAB PO SCH (08:07)
[2022-08-15] MEDS: Sodium Bicarbonate Tab 325 MG TAB PO SCH (08:07)
[2022-08-15] MEDS: Gabapentin 300 MG CAP PO SCH (08:07)
[2022-08-15] MEDS: hydrALAZINE 25 MG TAB PO SCH (08:07)
[2022-08-15] MEDS: Heparin 5,000 UNITS/ML VIAL SC SCH (08:11)
[2022-08-15 08:13] VITALS: BP 136/64; TEMP 98
== END 2022-08-15 11:35 | disposition home or self-care (01) | DRG 683 ==
LOC: ERS 23:36 → ERHOLD 08-11 04:38 → 2SW 08-11 14:14
PROVIDERS: ADMIT Student in an Organized Health Care Education/Training Program; ATTEND Hospitalist
DX: N17.9 Acute kidney failure, unspecified (principal); E87.20 Acidosis, unspecified; I13.0 Hypertensive heart and chronic kidney disease with heart failure and stage 1 through stage 4 chronic kidney disease, or unspecified chronic kidney disease; Z68.43 Body mass index [BMI] 50.0-59.9, adult; N18.5 Chronic kidney disease, stage 5; N25.81 Secondary hyperparathyroidism of renal origin; E66.01 Morbid (severe) obesity due to excess calories; E11.22 Type 2 diabetes mellitus with diabetic chronic kidney disease; E11.42 Type 2 diabetes mellitus with diabetic polyneuropathy; E88.09 Other disorders of plasma-protein metabolism, not elsewhere classified; E55.9 Vitamin D deficiency, unspecified; D50.9 Iron deficiency anemia, unspecified; D63.1 Anemia in chronic kidney disease; I50.9 Heart failure, unspecified; Z79.84 Long term (current) use of oral hypoglycemic drugs; Z79.899 Other long term (current) drug therapy; Z79.82 Long term (current) use of aspirin; Z90.49 Acquired absence of other specified parts of digestive tract; Z90.710 Acquired absence of both cervix and uterus; Z20.822 Contact with and (suspected) exposure to COVID-19
CPT/HCPCS: 36415; 36416; 71045; 74176; 80048; 80053; 80202; 81003; 81015; 82306; 82550; 82728; 83540; 83550; 83605; 83735; 83880; 83970; 84100; 84484; 85025; 87040; 87804; 93005; 93306; 96374; J0692; J1644; J1815; J1940; J2270; J2405; J3010; J3370; J3490; J7050; Q5105; U0002

== ENCOUNTER 2022-10-20 06:08 | Day surgery (SDC) | payer OTHER ==
[2022-10-19 10:42] VITALS: BMI 50.6
[~2022-10-20 06:08] MED LIST changes: +EPINEPHrine 0.3 MG in Ophthalmic Irrigation Solution 500 ML IRR SCH; -Iopamidol 370 76% 100 ML VIAL ONE
[2022-10-20] MEDS ORDERED: Lidocaine 1% MPF 2 ML VIAL ONE (06:23)
[2022-10-20] MEDS ORDERED: Cyclopentolate 1% Opth Drop 2 ML BOT ONE (06:30)
[2022-10-20] MEDS ORDERED: Phenylephrine 2.5% Ophth Soln 5 ML BOT ONE (06:31)
[2022-10-20] MEDS ORDERED: PROPOFOL 20 ML ONE (06:50)
[2022-10-20] MEDS ORDERED: Midazolam HCl 2 mg/2 ml Vial ONE (06:50)
[2022-10-20] MEDS ORDERED: FENTANYL 50 MCG/ML 1 ML VIAL ONE (06:50)
[2022-10-20] MEDS ORDERED: Bupivacaine 0.75% 10 ML VIAL ONE (09:01)
[2022-10-20] MEDS ORDERED: Maxitrol 0.1% Opth Oint 3.5 GM TUBE ONE (09:01)
[2022-10-20] MEDS ORDERED: Lidocaine 4% PF 5 ML AMP ONE (09:01)
[2022-10-20] MEDS ORDERED: Triamcinolone 40 MG/ML VIAL ONE (09:01)
[2022-10-20] MEDS ORDERED: CEFAZOLIN 1 GM VIAL ONE (09:01)
[2022-10-20] MEDS ORDERED: Lidocaine 1% PF 5 ML VIAL ONE (09:01)
== END 2022-10-20 10:40 | disposition home or self-care (01) ==
LOC: SDC 06:08
PROVIDERS: ATTEND Ophthalmology Retina Specialist
PROC: 08QF3ZZ Repair Left Retina, Percutaneous Approach (ICD-10-PCS; principal; 2022-10-20)
PROC: 08T53ZZ Resection of Left Vitreous, Percutaneous Approach (ICD-10-PCS; principal; 2022-10-20)
DX: H43.12 Vitreous hemorrhage, left eye (principal); Z79.4 Long term (current) use of insulin; Z79.899 Other long term (current) drug therapy
CPT/HCPCS: 36416; J0171; J0690; J2250; J2704; J3010; J3301; J3490

== ENCOUNTER 2022-11-17 09:36 | Day surgery (SDC) | payer OTHER ==
[2022-11-16 08:36] VITALS: BMI 47.2
[~2022-11-17 09:36] MED LIST changes: +Midazolam HCl 2 mg/2 ml Vial ONE; +fentaNYL 50 mcg/mL 1 mL Vial ONE
[2022-11-17] MEDS ORDERED: Cyclopentolate 1% Opth Drop 2 ML BOT ONE (09:54)
[2022-11-17] MEDS ORDERED: Phenylephrine 2.5% Ophth Soln 5 ML BOT ONE (09:54)
[2022-11-17] MEDS ORDERED: CEFAZOLIN 1 GM VIAL ONE (10:43)
[2022-11-17] MEDS ORDERED: Bupivacaine 0.75% 10 ML VIAL ONE (10:43)
[2022-11-17] MEDS ORDERED: PROPOFOL 200 MG/20 ML VIAL ONE (10:43)
[2022-11-17] MEDS ORDERED: Triamcinolone 40 MG/ML VIAL ONE (10:43)
[2022-11-17] MEDS ORDERED: Lidocaine 4% PF 5 ML AMP ONE (10:43)
[2022-11-17] MEDS ORDERED: Maxitrol 0.1% Opth Oint 3.5 GM TUBE ONE (10:43)
[2022-11-17] MEDS ORDERED: Lidocaine 1% PF 5 ML VIAL ONE (10:43)
[2022-11-17] MEDS ORDERED: Ondansetron ODT 4 MG TAB ONE (13:03)
[2022-11-17] MEDS ORDERED: Promethazine HCl 25 MG/ML VIAL ONE (13:42)
[2022-11-17] MEDS ORDERED: hydrALAZINE 20 MG/ML VIAL ONE (14:28)
== END 2022-11-17 16:00 | disposition home or self-care (01) ==
LOC: SDC 09:36
PROVIDERS: ATTEND Ophthalmology Retina Specialist
PROC: 08T43ZZ Resection of Right Vitreous, Percutaneous Approach (ICD-10-PCS; principal; 2022-11-17)
PROC: 08QE3ZZ Repair Right Retina, Percutaneous Approach (ICD-10-PCS; principal; 2022-11-17)
DX: H43.11 Vitreous hemorrhage, right eye (principal); Z79.4 Long term (current) use of insulin; Z79.899 Other long term (current) drug therapy
CPT/HCPCS: 36416; 93005; 93010; J0171; J0360; J0690; J2250; J2550; J2704; J3010; J3301; J3490; Q0162

== ENCOUNTER 2024-04-21 18:56 | Emergency (ER) | payer MEDICARE, OTHER ==
[2024-04-21 20:35] LABS: #Basophils 0.04 10x3/uL (0.0-0.2); %Basophils 0.3 % (0.0-1.0); %Lymphocytes 4.9 % (21.0-51.0); %Monocytes 3.9 % (0.0-10.0); %Neutrophils 89.6 % (42.0-75.0); Hematocrit 34.2 % (36.0-47.0); Hemoglobin 11.6 g/dL (12.0-16.0); Mean Corpuscular HGB CONC 33.9 g/dL (32.0-36.0); Mean Corpuscular Hemoglobin 29.4 pg (27.0-31.0); Mean Corpuscular Volume 86.8 fL (78.0-98.0); Mean Platelet Volume 12.4 fL (7.4-10.4); Platelet Count 156 10x3/uL (130-400); RBC Distribution Width 13.2 % (11.5-14.5); Red Blood Cell (RBC) Count 3.94 mill/uL (4.20-5.40)
[2024-04-21] MEDS ORDERED: Morphine 2 MG/ML VIAL ONE (21:05)
[2024-04-21] MEDS ORDERED: Sodium Chloride 0.9% 100 ML ONE (21:05)
[2024-04-21] MEDS ORDERED: cefTRIAXone (ROCEPHIN) 2 GM VIAL ONE (21:05)
[2024-04-21 21:14] LABS: Anion Gap 16 mmol/L (10-20); BUN (Urea Nitrogen) 17 mg/dL (7.0-18.7); Calc. Creatinine Clearance 0 mL/min (70-130); Carbon Dioxide 25 mmol/L (22-29); Chloride 99 mmol/L (98-107); Potassium 4.5 mmol/L (3.5-5.1); Sodium 135 mmol/L (136-145)
[2024-04-21 21:15] LABS: ALT (SGPT) 22 U/L (8-55); AST (SGOT) 21 U/L (5-34); Albumin 3.7 g/dL (3.5-5.0); Alkaline Phosphatase 110 U/L (40-110); Bilirubin, Total 0.6 mg/dL (0.2-1.2); Calcium 9.1 mg/dL (7.8-10.44); Estimated GFR 13; Globulin 3.3 g/dL (2.4-3.5); Glucose 207 mg/dL (70-105)
== END 2024-04-21 23:43 | disposition home or self-care (01) ==
LOC: ERS 18:56
DX: L03.115 Cellulitis of right lower limb (principal); E11.40 Type 2 diabetes mellitus with diabetic neuropathy, unspecified; I12.9 Hypertensive chronic kidney disease with stage 1 through stage 4 chronic kidney disease, or unspecified chronic kidney disease; E11.22 Type 2 diabetes mellitus with diabetic chronic kidney disease; N18.9 Chronic kidney disease, unspecified
CPT/HCPCS: 73630; 80053; 83605; 85025; 87040; J0696; J2272; 36415; 96374; 96375